=== PATIENT | female | born 1995 | race Caucasian/White ===

== ENCOUNTER 2017-01-02 18:50 | Emergency (ER) | payer MEDICAID, OTHER ==
[~2017-01-02] VITALS: Ht 160 cm; Wt 75.5 kg
[2017-01-02 18:54] VITALS: Ht 160 cm; Wt 75.5 kg
[2017-01-02] MEDS ORDERED: KETOROLAC 30 MG INJ IM STA (19:23)
[2017-01-02 20:31] LABS: URINE BLOOD (Dip) POC 1+ (NEGATIVE)
[2017-01-02] MEDS ORDERED: PHEN-538 PO (20:42)
[2017-01-02] MEDS ORDERED: CEPH-443 PO (20:42)
[2017-01-02 20:54] VITALS: BP 133/84; PULSE 75; RESP 16; TEMP 98.5
--- NOTE | 2017-01-03 00:10 | ERD ---
ER Documentation Chief Complaint Date/Time DATE: 01/03/17 TIME: 00:10 Chief Complaint right flank pain x 1 week, also c/o painful/burning urination HPI This is a 21-year-old female presenting to the emergency department complaining of painful urination, urgency for 1.5 weeks. Patient also complains of right- sided flank pain for the past week rating it mild in severity. Patient denies any fevers, hematuria. Patient states that her last menstrual period was on the 26 and it was normal. She admits to being sexually active. She denies any vaginal discharge. ROS All systems reviewed and are negative except as per history of present illness. Medications Home Meds Active Scripts Phenazopyridine Hcl* (Pyridium*) 200 Mg Tab, 200 MG PO TID Y for URINARY PAIN, # 20 TAB Prov:CHELITA RICE PA-C 01/02/17 Cephalexin* (Keflex*) 500 Mg Capsule, 500 MG PO BID for 10 Days, CAP Prov:CHELITA RICE PA-C 01/02/17 Allergies Allergies: Coded Allergies: No Known Allergy (Unverified , 01/02/17) PMhx/Soc Hx Alcohol Use: No Hx Substance Use: No Hx Tobacco Use: No Smoking Status: Never smoker Physical Exam Vitals Vital Signs Date Time Temp Pulse Resp B/P Pulse Ox O2 Delivery O2 Flow Rate FiO2 01/02/17 20:54 98.5 75 16 133/84 100 Room Air 01/02/17 18:54 98.0 105 20 131/68 99 Physical Exam GENERAL: well-developed/well-nourished, in no apparent distress, non-toxic appearing HENT: NC/AT, moist mucous membranes EYES: Conjunctiva normal NECK: Supple, no lymphadenopathy PULM: CTA bilaterally, no rales, rhonchi, or wheezing heard CV: Normal S1S2, RRR, good capillary refill GI: Soft, non-distended, non-tender to palpation Normal bowel sounds, no masses or organomegaly felt on exam No gross peritonitis, no bruits Negative Rovsing, negative Ovalles, negative McBurney's point, Negative CVAT BACK: No masses EXT: No clubbing, cyanosis, or edema NEURO: Alert and Orientated SKIN: Intact, normal turgor PSYCH: Normal mood and mentation Results 24 hrs Laboratory Tests Test 01/02/17 20:33 Bedside Urine pH (LAB) 6.0 Bedside Urine Protein (LAB) Negative Bedside Urine Glucose (UA) Negative Bedside Urine Ketones (LAB) 1+ Bedside Urine Blood 1+ Bedside Urine Nitrite (LAB) Negative Bedside Urine Leukocyte Esterase (L Negative Current Medications Medications (Trade) Dose Ordered Sig/French Route PRN Reason Start Time Stop Time Status Last Admin Dose Admin Ketorolac Tromethamine (Toradol) 30 mg ONCE STAT IM 01/02/17 19:23 01/02/17 19:24 DC 01/02/17 20:32 Procedures/MDM This is a 21-year-old female presenting to the emergency department complaining of dysuria and flank pain most likely due to urinary tract infection. There was no evidence of nephrolithiasis or pyelonephritis. Patient appears well, she is stable vital signs and afebrile. She did not have any CVA tenderness. Patient also did not have any vaginal discharge. I sent patient's urine for gonorrhea and chlamydia, discussed if positive we will call her and treat her accordingly. Patient was given a prescription for Keflex to take twice a day for the next 10 days. I discussed with her to follow-up with an primary care physician or [facility] in the next couple days as well. Discussed return to the ER for any worsening symptoms. Patient is hematuria stable for discharge for home with precautions to return. She understands and agrees with this plan. urine preg neg Departure Diagnosis: Primary Impression: Dysuria Condition: Stable Patient Instructions: Dysuria Additional Instructions: FOLLOW UP WITH YOUR PRIMARY CARE PHYSICIAN TOMORROW.Return to this facility if you are not improving as expected. Take all medicines as directed. Return to this facility if you are not improving as expected. CHELITA RICE PA-C January 03, 2017 00:10
== END 2017-01-02 20:55 | disposition home or self-care (01) ==
LOC: FTE 18:50
DX: R30.0 Dysuria (principal)
CPT/HCPCS: 81003; 87086; 87591; 96372; J1885; Z7502

== ENCOUNTER 2017-01-29 20:42 | Emergency (ER) | payer OTHER ==
[~2017-01-29] VITALS: Ht 160 cm; Wt 73.5 kg
[~2017-01-29 20:42] MED LIST: CEPH-443 PO; PHEN-538 PO
[2017-01-29 21:10] VITALS: Ht 160 cm; Wt 73.5 kg
[2017-01-29] MEDS ORDERED: SOD CHLORIDE 0.9% 1,000 ML IV STA (23:13)
[2017-01-29] MEDS ORDERED: ONDANSETRON 4 MG INJ IV STA (23:13)
--- NOTE | 2017-01-29 23:29 | ERD ---
ER Documentation Chief Complaint Date/Time DATE: 01/29/17 TIME: 23:28 Chief Complaint Dysuria and hematuria x2 weeks. seen here 01/02/17 HPI 21-year-old female presents to emergency department for complaints of dysuria and hematuria for 2 weeks, and left flank pain. Patient was seen here in emergency department 2 weeks ago, was prescribed Keflex, patient was called again and was given Macrobid on the phone, patient filled prescriptions and took medications. Patient continues to have symptoms, discussed the pain as burning pain, 4/10 scale, accompanied with left flank pain and hematuria. Patient denies any fever or chills. Patient denies any nausea or vomiting. ROS All systems reviewed and are negative except as per history of present illness. Medications Home Meds Active Scripts Phenazopyridine Hcl* (Pyridium*) 200 Mg Tab, 200 MG PO TID Y for URINARY PAIN, # 20 TAB Prov:CHELITA RICE PA-C 01/02/17 Cephalexin* (Keflex*) 500 Mg Capsule, 500 MG PO BID for 10 Days, CAP Prov:CHELITA RICE PA-C 01/02/17 Allergies Allergies: Coded Allergies: No Known Allergy (Unverified , 01/02/17) PMhx/Soc Medical and Surgical Hx: pt denies Medical Hx, pt denies Surgical Hx History of Surgery: No Anesthesia Reaction: No Hx Neurological Disorder: No Hx Respiratory Disorders: No Hx Cardiac Disorders: No Hx Miscellaneous Medical Probl: No Hx Alcohol Use: No Hx Substance Use: No Hx Tobacco Use: No Smoking Status: Never smoker FmHx Family History: No coronary disease, No diabetes, No other Physical Exam Vitals Vital Signs Date Time Temp Pulse Resp B/P Pulse Ox O2 Delivery O2 Flow Rate FiO2 01/29/17 21:10 98.0 64 18 149/77 100 Physical Exam GENERAL: The patient is well developed and appropriate for usual state of health, in no apparent distress. CHEST: Clear to auscultation bilaterally. There are no rales, wheezes or rhonchi. HEART: Regular rate and rhythm. No murmurs, clicks, rubs or gallops. No S3 or S4. ABDOMEN: Soft, nontender and nondistended. Good bowel sounds. No rebound or guarding. No gross peritonitis. No gross organomegaly or masses. No Ovalles sign or McBurney point tenderness. BACK: No midline or flank tenderness. EXTREMITIES: Equal pulses bilaterally. There is no peripheral clubbing, cyanosis or edema. No focal swelling or erythema. Full range of motion. Grossly neurovascularly intact. NEURO: Alert and oriented. Cranial nerves 2-12 intact. Motor strength in all 4 extremities with 5/5 strength. Sensation grossly intact. Normal speech and gait. SKIN: There is no apparent rash or petechia. The skin is warm and dry. HEMATOLOGIC AND LYMPHATIC: There is no evidence of excessive bruising or lymphedema. No gross cervical, axillary, or inguinal lymphadenopathy. Result Diagram: 01/29/177 01/29/177 Results 24 hrs Laboratory Tests Test 01/29/17 23:37 White Blood Count 7.810^3/ul Red Blood Count 4.5510^6/ul Hemoglobin 14.4g/dl Hematocrit 42.1% Mean Corpuscular Volume 92.5fl Mean Corpuscular Hemoglobin 31.6pg Mean Corpuscular Hemoglobin Concent 34.2g/dl Red Cell Distribution Width 10.9% Platelet Count 85430^3/UL Mean Platelet Volume 12.0fl Neutrophils % 42.2% Lymphocytes % 46.5% Monocytes % 6.8% Eosinophils % 3.6% Basophils % 0.8% Nucleated Red Blood Cells % 0.0/100WBC Neutrophils # 3.310^3/ul Lymphocytes # 3.610^3/ul Monocytes # 0.510^3/ul Eosinophils # 0.310^3/ul Basophils # 0.110^3/ul Nucleated Red Blood Cells # 0.010^3/ul Urine Color LT. YELLOW Urine Clarity CLEAR Urine pH 6.0 Urine Specific Gardiner <=1.005 Urine Ketones NEGATIVE Urine Nitrite NEGATIVE Urine Bilirubin NEGATIVE Urine Urobilinogen 0.2 E.U./dL Urine Leukocyte Esterase 1+ Urine Microscopic RBC 0-2/HPF Urine Microscopic WBC 5-10/HPF Urine Squamous Epithelial Cells FEW Urine Bacteria OCCASIONAL Urine Hemoglobin 1+ Urine Glucose NEGATIVE% Urine Total Protein NEGATIVE Sodium Level 143mmol/L Potassium Level 3.9mmol/L Chloride Level 102mmol/L Carbon Dioxide Level 27mmol/L Anion Gap 18 Blood Urea Nitrogen 12mg/dl Creatinine 0.81mg/dl Glucose Level 86mg/dl Calcium Level 9.7mg/dl Total Bilirubin 0.5mg/dl Direct Bilirubin 0.00mg/dl Indirect Bilirubin 0.5mg/dl Aspartate Amino Transf (AST/SGOT) 24IU/L Alanine Aminotransferase (ALT/SGPT) 31IU/L Alkaline Phosphatase 111IU/L Total Protein 8.2g/dl Albumin 5.2g/dl Globulin 3.00g/dl Albumin/Globulin Ratio 1.73 Lipase 123U/L Current Medications Medications (Trade) Dose Ordered Sig/French Route PRN Reason Start Time Stop Time Status Last Admin Dose Admin Sodium Chloride (NS) 1,000 ml @ 1,000 mls/hr Q1H STAT IV 01/29/17 23:13 01/30/17 00:12 DC 01/29/17 23:38 Morphine Sulfate (morphine) 2 mg ONCE ONCE IV 01/29/17 23:30 01/29/17 23:31 DC 01/29/17 23:39 Ondansetron HCl (Zofran Inj) 4 mg ONCE STAT IV 01/29/17 23:13 01/29/17 23:15 DC 01/29/17 23:38 Patient was given medication for pain here in emergency department, after treatment, patient verbalized feeling much better. Patient's pain is improved.Normal saline IV bolus was given here in emergency department for rehydration, patient tolerated IV fluids.Patient was given Zofran here in the emergency department. After treatment, patient was able to tolerate po fluids here in the emergency department without any vomiting. There is no signs and symptoms of dehydration. PROCEDURE: CT Abdomen and pelvis without contrast. CLINICAL INDICATION: Abdominal pain. TECHNIQUE: CT scan of the abdomen and pelvis was performed on a multi- detector high-resolution CT scanner. Contiguous axial images were obtained from the lung bases to the ischial tuberosities without intravenous contrast. Coronal and sagittal reformatted images were also obtained. Images were reviewed on the PACS workstation. One or more of the following dose reduction techniques were used: - Automated exposure control. - Adjustment of the mA and/or kV according to patient size. - Use of iterative reconstruction technique. Exam CTD/vol = 11.85 mGy. Total exam DLP = 662.74 mGy-cm. COMPARISON: 10/07/2012. FINDINGS: Evaluation of the lung bases demonstrates no pleural or parenchymal disease. Abdomen: The liver is normal in size. There is no focal mass or dilatation of the biliary tree. The gallbladder is not distended. The spleen, pancreas and bilateral adrenal glands are within normal limits. Bilateral kidneys are normal in size with no contour deforming mass identified. There is no radiopaque renal or ureteral calculus identified. There is no hydronephrosis or hydroureter. There is no retroperitoneal adenopathy. The abdominal aorta is of normal caliber. There is no abnormal bowel wall thickening or distension. There is no bowel obstruction or free air. A normal appendix is identified. There is no diverticulosis or diverticulitis. There is no ascites. Pelvis: The bladder is unremarkable. The uterus and adnexa are within normal limits. There is an intrauterine device in place. There is no significant pelvic adenopathy or free fluid. Evaluation of the osseous structures demonstrates no suspicious lytic or blastic lesion. IMPRESSION: No acute abnormality identified within the abdomen and pelvis. Intrauterine device. .Titi Birmingham MD, MD Date Time Electronically viewed and signed by .Titi Birmingham MD, MD on 01/30/2017 01:26 .T/ CC: FRANCES MONTEJO [employer] Procedures/MDM Medical Decision Making: Patient symptoms is likely consistent with pyelonephritis, this time, no symptoms of sepsis at this time, patient appears well and is hemodynamically stable. Outpatient management is appropriate at this time, first dose of ciprofloxacin was given here in emergency department. There is low suspicion for abdominal emergencies at this time. Patients abdominal exam is normal at this time. Patients radiology exam does not show any abdominal emergencies at this time. There is low suspicion for appendicitis , cholecystitis, abdominal aortic aneurysms or peritonitis at this time. There is low suspicion for sepsis. Patient appears well and is hemodynamically stable. Disposition: Home. Condition: Stable Prescription ciprofloxacin, Pyridium Instructions: Patient is advised to take medications as prescribed. Patient is advised to rest, increase fluid intake and do good perineal hygiene. Patient is advised that if symptoms are worse, severe abdominal pain, uncontrolled vomiting , high fever, severe flank pain, worst signs and symptoms, to return to the emergency department immediately. Otherwise, patient can follow up with primary care doctor in 5-7 days. Departure Diagnosis: Primary Impression: Pyelonephritis Condition: Stable Patient Instructions: Pyelonephritis, Female (Adult) Additional Instructions: Patient is advised to take medications as prescribed. Patient is advised to rest , increase fluid intake and do good perineal hygiene. Patient is advised that if symptoms are worse, severe abdominal pain, uncontrolled vomiting, high fever , severe flank pain, worst signs and symptoms, to return to the emergency department immediately. Otherwise, patient can follow up with primary care doctor in 5-7 days. FRANCES MONTEJO NP Jan 29, 2017 23:29
[2017-01-29] MEDS ORDERED: morphine 2 MG INJ IV ONE (23:30)
[2017-01-29 23:59] LABS: ADD SCAN DIFF NO
[2017-01-30 00:01] LABS: BASOPHIL # 0.1 10^3/ul (0.0-0.1); BASOPHILS % 0.8 % (0.0-2.0); EOSINOPHILS # 0.3 10^3/ul (0.0-0.5); EOSINOPHILS % 3.6 % (0.0-7.0); HEMATOCRIT 42.1 % (37.0-47.0); HEMOGLOBIN 14.4 g/dl (12.0-16.0); LYMPHOCYTES # 3.6 10^3/ul (0.8-2.9); LYMPHOCYTES % 46.5 % (15.0-51.0); MEAN CORPUSCULAR HEMOGLOBIN 31.6 pg (29.0-33.0); MEAN CORPUSCULAR HGB CONC 34.2 g/dl (32.0-37.0); MEAN CORPUSCULAR VOLUME 92.5 fl (82.0-101.0); MONOCYTE # 0.5 10^3/ul (0.3-0.9); MONOCYTES % 6.8 % (0.0-11.0); NEUTROPHIL # 3.3 10^3/ul (1.6-7.5); NEUTROPHILS % 42.2 % (39.0-77.0); PLATELET COUNT 235 10^3/UL (140-415); RED BLOOD COUNT 4.55 10^6/ul (4.20-5.40); RED CELL DISTRIBUTION WIDTH 10.9 % (11.5-14.5); WHITE BLOOD COUNT 7.8 10^3/ul (4.8-10.8)
[2017-01-30 00:03] LABS: ADD UMIC YES; URINE BILIRUBIN (Dip) NEGATIVE (NEGATIVE); URINE BLOOD (Dip) 1+ (NEGATIVE); URINE COLOR LT. YELLOW (YELLOW); URINE GLUCOSE (Dip) NEGATIVE (NEGATIVE); URINE KETONES (Dip) NEGATIVE (NEGATIVE); URINE LEUKOCYTE ESTERASE (Dip) 1+ (NEGATIVE); URINE NITRITE (Dip) NEGATIVE (NEGATIVE); URINE TOTAL PROTEIN (Dip) NEGATIVE (NEGATIVE); URINE UROBILINOGEN (Dip) 0.2 E.U./dL (0.1-1.0)
[2017-01-30 00:12] LABS: SQUAMOUS EPITHELIAL CELL,UR FEW; URINE RBCS 0-2 /HPF (0)
[2017-01-30 00:13] LABS: BACTERIA,URINE OCCASIONAL
[2017-01-30 00:25] LABS: ALBUMIN 5.2 g/dl (3.3-4.9); ALBUMIN/GLOBULIN RATIO 1.73; BILIRUBIN,INDIRECT 0.5 mg/dl (0-1.1); BILIRUBIN,TOTAL 0.5 mg/dl (0.2-1.3); CALCIUM 9.7 mg/dl (8.4-10.2); CREATININE 0.81 mg/dl (0.44-1.00); POTASSIUM 3.9 mmol/L (3.5-5.1); TOTAL PROTEIN 8.2 g/dl (6.1-8.1)
--- NOTE | 2017-01-30 01:26 | RADRPT ---
PROCEDURE: CT Abdomen and pelvis without contrast. CLINICAL INDICATION: Abdominal pain. TECHNIQUE: CT scan of the abdomen and pelvis was performed on a multi-detector high-resolution CT scanner. Contiguous axial images were obtained from the lung bases to the ischial tuberosities wit hout intravenous contrast. Coronal and sagittal reformatted images were also obtained. Images were reviewed on the PACS workstation. One or more of the following dose reduction techniques were used: - Automated exposure control. - Adjustment of the mA and/or kV according to patient size. - Use of iterative reconstruction technique. Exam CTD/vol = 11.85 mGy. Total exam DLP = 662.74 mGy-cm. COMPARISON: 10/07/2012. FINDINGS: Evaluation of the lung bases demonstrates no pleural or parenchymal disease. Abdomen: The liver is normal in size. There is no focal mass or dilatation of the biliary tree. T he gallbladder is not distended. The spleen, pancreas and bilateral adrenal glands are within marie l limits. Bilateral kidneys are normal in size with no contour deforming mass identified. There is no radiopaque renal or ureteral calculus identified. There is no hydronephrosis or hydroureter. T here is no retroperitoneal adenopathy. The abdominal aorta is of normal caliber. There is no abnormal bowel wall thickening or distension. There is no bowel obstruction or free air . A normal appendix is identified. There is no diverticulosis or diverticulitis. There is no asci charly. Pelvis: The bladder is unremarkable. The uterus and adnexa are within normal limits. There is an intrauterine device in place. There is no significant pelvic adenopathy or free fluid. Evaluation of the osseous structures demonstrates no suspicious lytic or blastic lesion. IMPRESSION: No acute abnormality identified within the abdomen and pelvis. Intrauterine device. .Titi Birmingham MD, MD Date Time Electronically viewed and signed by .Titi Birmingham MD, MD on 01/30/2017 01:26 .T/
[2017-01-30] MEDS ORDERED: CIPR500T4 PO (01:44)
[2017-01-30] MEDS ORDERED: PHEN-538 PO (01:44)
[2017-01-30] MEDS ORDERED: CIPROFLOXACIN 400MG/D5W 200 ML IVPB ONE (02:00)
[2017-01-30 02:53] VITALS: BP 123/71; PULSE 72; RESP 18; TEMP 98.4
== END 2017-01-30 02:56 | disposition home or self-care (01) ==
LOC: FTE 20:42
DX: N12 Tubulo-interstitial nephritis, not specified as acute or chronic (principal)
CPT/HCPCS: 74176; 80053; 81001; 83690; 85025; 87086; J0744; J7030; 36415; 96374; 96375

== ENCOUNTER 2017-08-30 09:56 | Emergency (ER) | END 2017-08-30 13:26 | disposition home or self-care (01) ==